=== PATIENT | male | born 1940 | race African-American/Black ===

== ENCOUNTER 2021-06-12 15:14 | Inpatient (IN) | payer MEDICARE, MEDICAID ==
[~2021-06-12] VITALS: Ht 177.8 cm; Wt 81.6 kg
[2021-06-12 16:47] LABS: BASOPHILS % 0.8 % (0.0-2.0); HEMATOCRIT. 33.1 % (42.0-52.0); HEMOGLOBIN. 10.8 g/dL (14.0-18.0); LYMPHOCYTES % 33.5 % (20.0-50.0); MEAN CORPUSCULAR HEMOGLOBIN 32.4 pg (28.0-32.0); MEAN CORPUSCULAR VOLUME 99.1 fL (80.0-94.0); MEAN PLATELET VOLUME 8.5 fl (7.4-10.4); MONOCYTES % 10.5 % (2.0-8.0); NEUTROPHILS % 54.2 % (40.0-76.0); PLATELET 358 x1000/uL (130-400); RED BLOOD CELL COUNT 3.34 mill/uL (4.7-6.1); RED CELL DISTRIBUTION WIDTH 13.5 % (11.6-14.6)
[2021-06-12 16:54] LABS: CHLORIDE 110 mEq/L (98-107)
[2021-06-12 16:58] LABS: PROTHROMBIN TIME 10.3 sec (9.6-11.0)
[2021-06-12 16:59] LABS: ETHANOL BLOOD < 10 mg/dL
[2021-06-12 17:04] LABS: CLARITY URINE CLEAR (CLEAR); COLOR URINE YELLOW (YELLOW); KETONES URINE NEGATIVE (NEGATIVE); LEUKOCYTE ESTERASE URINE NEGATIVE (NEGATIVE); NITRITE URINE NEGATIVE (NEGATIVE); OCCULT BLOOD URINE NEGATIVE (NEGATIVE); PROTEIN URINE TRACE (NEGATIVE); SPECIFIC GRAVITY URINE 1.018 (1.005-1.030)
[2021-06-12 17:25] LABS: *AMPHETAMINES SCREEN URINE NEGATIVE (NEGATIVE); *BARBITURATES SCREEN URINE NEGATIVE (NEGATIVE); *BENZODIAZEPINES SCREEN URINE NEGATIVE (NEGATIVE); *COCAINE SCREEN URINE NEGATIVE (NEGATIVE); CANNABINOID URINE SCREEN NEGATIVE (NEGATIVE); METHADONE URINE SCREEN NEGATIVE (NEGATIVE); OPIATES URINE SCREEN NEGATIVE (NEGATIVE); PHENCYCLIDINE URINE SCREEN NEGATIVE (NEGATIVE)
[2021-06-12] MEDS ORDERED: SODIUM CHLORIDE 0.9% 1,000 ML IV ONE (19:15)
[2021-06-12] MEDS ORDERED: LABETALOL 5MG/ML SYR 20 MG/4 ML SYRINGE IV ONE (19:30)
[2021-06-12] MEDS ORDERED: ONDANSETRON HCL 4MG/2ML INJ IV PRN (20:45)
[2021-06-12] MEDS ORDERED: ACETAMINOPHEN 325MG TABLET PO PRN (20:45)
[2021-06-12] MEDS ORDERED: DOCUSATE SODIUM 100MG CAPSULE PO PRN (20:45)
[2021-06-12] MEDS ORDERED: MAGNESIUM/ALUMINUM HYDROXIDE/SIMETHICONE 30ML UDC PO PRN (20:45)
[2021-06-12] MEDS ORDERED: IPRATROPIUM/ALBUTEROL 0.5-3(2.5)MG/3ML NEB NEB PRN (20:45)
[2021-06-12] MEDS ORDERED: CLONIDINE 0.1MG TABLET PO PRN (20:45)
[2021-06-12] MEDS: SODIUM CHLORIDE 0.9% 1,000 ML IV SCH (21:06)
[2021-06-12] MEDS: ENOXAPARIN 40MG/0.4ML SYR SUBCUT SCH (23:05)
[2021-06-12 23:25] LABS: CHLORIDE 112 mEq/L (98-107)
[2021-06-12 23:33] LABS: CREATINE KINASE 80 IU/L (39-308)
[2021-06-13] VITALS (7 sets, daily range): BP systolic 120–163; BP diastolic 72–89
[2021-06-13] MEDS: SODIUM CHLORIDE 0.9% 1,000 ML IV SCH ×2 (10:05→12:48)
[2021-06-13 16:47] LABS: BASOPHILS % 1.2 % (0.0-2.0); EOSINOPHILS % 0.6 % (0.0-5.0); HEMATOCRIT. 28.6 % (42.0-52.0); HEMOGLOBIN. 9.9 g/dL (14.0-18.0); LYMPHOCYTES % 19.7 % (20.0-50.0); MEAN CORPUSCULAR VOLUME 95.8 fL (80.0-94.0); MEAN PLATELET VOLUME 7.9 fl (7.4-10.4); MONOCYTES % 9.3 % (2.0-8.0); NEUTROPHILS % 69.2 % (40.0-76.0); PLATELET 316 x1000/uL (130-400); RED BLOOD CELL COUNT 2.98 mill/uL (4.7-6.1); RED CELL DISTRIBUTION WIDTH 13.2 % (11.6-14.6)
[2021-06-13 17:05] LABS: CREATINE KINASE 99 IU/L (39-308); LDL CHOLESTEROL 54 mg/dL (5-100)
[2021-06-13 17:07] LABS: HDL CHOLESTEROL 53 mg/dL (40-59)
[2021-06-13 17:08] LABS: CREATINE KINASE MB FRACTION 1.3 ng/mL (0.5-3.6)
[2021-06-13 17:20] LABS: FOLIC ACID (FOLATE) SERUM 16.2 ng/mL (>5.38)
[2021-06-13] MEDS: ENOXAPARIN 40MG/0.4ML SYR SUBCUT SCH (21:02)
[2021-06-14] VITALS: BP 151/88
[2021-06-14 04:00] VITALS: BP 157/89
[2021-06-14 06:35] LABS: BASOPHILS % 0.7 % (0.0-2.0); HEMATOCRIT. 29.2 % (42.0-52.0); HEMOGLOBIN. 9.7 g/dL (14.0-18.0); MEAN CORPUSCULAR HEMOGLOBIN 32.6 pg (28.0-32.0); MEAN CORPUSCULAR VOLUME 97.9 fL (80.0-94.0); MEAN PLATELET VOLUME 8.1 fl (7.4-10.4); MONOCYTES % 12.5 % (2.0-8.0); NEUTROPHILS % 63.8 % (40.0-76.0); PLATELET 299 x1000/uL (130-400); RED BLOOD CELL COUNT 2.98 mill/uL (4.7-6.1); RED CELL DISTRIBUTION WIDTH 13.3 % (11.6-14.6)
[2021-06-14 06:48] LABS: PHOSPHORUS 2.6 mg/dL (2.5-4.9)
[2021-06-14 08:00] VITALS: BP 134/81
[2021-06-14] MEDS ORDERED: LIDOCAINE HCL 1% 20ML VIAL (Pyxis) INJ ONE (10:09)
[2021-06-14 12:00] VITALS: BP 147/85
[2021-06-14] MEDS: SODIUM CHLORIDE 0.9% 1,000 ML IV SCH (12:45)
[2021-06-14 16:00] VITALS: BP 160/87
[2021-06-14] MEDS: CEFTRIAXONE 1,000 MG in DEXTROSE 5% WATER 50 ML IV SCH (17:15)
[2021-06-14 20:00] VITALS: BP 140/86
[2021-06-14] MEDS: ENOXAPARIN 40MG/0.4ML SYR SUBCUT SCH (21:42)
[2021-06-15] VITALS: BP 129/68
[2021-06-15] MEDS: SODIUM CHLORIDE 0.9% 1,000 ML IV SCH ×2 (02:05→15:25)
[2021-06-15 04:00] VITALS: BP 151/85
[2021-06-15 08:00] VITALS: BP 144/90
[2021-06-15 08:53] LABS: BASOPHILS % 0.6 % (0.0-2.0); EOSINOPHILS % 0.6 % (0.0-5.0); HEMATOCRIT. 28.6 % (42.0-52.0); HEMOGLOBIN. 9.6 g/dL (14.0-18.0); LYMPHOCYTES % 13.8 % (20.0-50.0); MEAN CORPUSCULAR HEMOGLOBIN 32.3 pg (28.0-32.0); MEAN CORPUSCULAR VOLUME 95.7 fL (80.0-94.0); MEAN PLATELET VOLUME 7.8 fl (7.4-10.4); MONOCYTES % 9.5 % (2.0-8.0); NEUTROPHILS % 75.5 % (40.0-76.0); PLATELET 285 x1000/uL (130-400); RED BLOOD CELL COUNT 2.99 mill/uL (4.7-6.1); RED CELL DISTRIBUTION WIDTH 13.5 % (11.6-14.6)
[2021-06-15 09:04] LABS: PHOSPHORUS 2.6 mg/dL (2.5-4.9)
[2021-06-15 12:00] VITALS: BP 145/97
[2021-06-15 16:00] VITALS: BP 138/80
[2021-06-15] MEDS: CEFTRIAXONE 1,000 MG in DEXTROSE 5% WATER 50 ML IV SCH (16:29)
[2021-06-15 19:34] LABS: HEMATOCRIT 25.5 % (42.0-52.0); HEMOGLOBIN 8.7 g/dL (14.0-18.0)
[2021-06-15 20:00] VITALS: BP 112/82
[2021-06-15] MEDS: ENOXAPARIN 40MG/0.4ML SYR SUBCUT SCH (22:18)
[2021-06-16] VITALS: BP 145/77
[2021-06-16] MEDS: CEFEPIME 1,000 MG in DEXTROSE 5% WATER 50 ML IV SCH ×2 (00:44→09:18)
[2021-06-16 04:00] VITALS: BP 145/89
[2021-06-16] MEDS: SODIUM CHLORIDE 0.9% 1,000 ML IV SCH (05:18)
[2021-06-16 06:06] LABS: BASOPHILS % 0.6 % (0.0-2.0); EOSINOPHILS % 1.9 % (0.0-5.0); HEMATOCRIT. 26.1 % (42.0-52.0); HEMOGLOBIN. 8.7 g/dL (14.0-18.0); LYMPHOCYTES % 19.2 % (20.0-50.0); MEAN CORPUSCULAR HEMOGLOBIN 32.4 pg (28.0-32.0); MEAN CORPUSCULAR VOLUME 97.3 fL (80.0-94.0); MEAN PLATELET VOLUME 8.1 fl (7.4-10.4); MONOCYTES % 12.2 % (2.0-8.0); NEUTROPHILS % 66.1 % (40.0-76.0); PLATELET 237 x1000/uL (130-400); RED BLOOD CELL COUNT 2.68 mill/uL (4.7-6.1); RED CELL DISTRIBUTION WIDTH 13.2 % (11.6-14.6)
[2021-06-16 07:02] LABS: PHOSPHORUS 2.8 mg/dL (2.5-4.9)
[2021-06-16 08:00] VITALS: BP 147/82
[2021-06-16 10:03] LABS: CLARITY URINE CLEAR (CLEAR); COLOR URINE YELLOW (YELLOW); KETONES URINE NEGATIVE (NEGATIVE); LEUKOCYTE ESTERASE URINE 2+ (NEGATIVE); NITRITE URINE NEGATIVE (NEGATIVE); OCCULT BLOOD URINE 2+ (NEGATIVE); PROTEIN URINE 1+ (NEGATIVE); SPECIFIC GRAVITY URINE 1.019 (1.005-1.030); UROBILINOGEN URINE 0.2 E.U./dL (0.2-1.0)
[2021-06-16 12:00] VITALS: BP 158/90
[2021-06-16] MEDS ORDERED: LEVO750T46 MT (12:03)
[2021-06-16 16:00] VITALS: BP 156/85
[2021-06-16 16:48] VITALS: BP 156/85
== END 2021-06-16 17:40 | disposition home or self-care (01) | DRG 683 ==
LOC: ER 15:35 → 6EST 20:42 → ENRESERV 23:52
PROVIDERS: ADMIT Internal Medicine; ATTEND Internal Medicine
PROC: 02HV33Z Insertion of Infusion Device into Superior Vena Cava, Percutaneous Approach (ICD-10-PCS; principal; 2021-06-14)
PROC: B518ZZA Fluoroscopy of Superior Vena Cava, Guidance (ICD-10-PCS; 2021-06-14)
DX: N17.9 Acute kidney failure, unspecified (principal); N39.0 Urinary tract infection, site not specified; R62.7 Adult failure to thrive; D53.9 Nutritional anemia, unspecified; F03.90 Unspecified dementia, unspecified severity, without behavioral disturbance, psychotic disturbance, mood disturbance, and anxiety; N18.9 Chronic kidney disease, unspecified; N28.1 Cyst of kidney, acquired; B96.5 Pseudomonas (aeruginosa) (mallei) (pseudomallei) as the cause of diseases classified elsewhere; I12.9 Hypertensive chronic kidney disease with stage 1 through stage 4 chronic kidney disease, or unspecified chronic kidney disease; Z82.49 Family history of ischemic heart disease and other diseases of the circulatory system; Z68.25 Body mass index [BMI] 25.0-25.9, adult
CPT/HCPCS: 36415; 71045; 76770; 76937; 80048; 80053; 80061; 80305; 80320; 81003; 82550; 82553; 82607; 82746; 82962; 83735; 83880; 84100; 84443; 84484; 85014; 85018; 85025; 87077; 87186; 93005; 93970; 99285; C1725; C1893; J0692; J0696; J1650; J3490; J7040; J7060; G0480

== ENCOUNTER 2021-06-21 09:32 | Emergency (ER) | payer MEDICARE, MEDICAID ==
[~2021-06-21] VITALS: Ht 177.8 cm; Wt 82.0 kg
[~2021-06-21 09:32] MED LIST: LEVO750T46 MT
[2021-06-21 10:25] LABS: BASOPHILS % 0.9 % (0.0-2.0); EOSINOPHILS % 0.6 % (0.0-5.0); HEMATOCRIT. 29.2 % (42.0-52.0); HEMOGLOBIN. 9.9 g/dL (14.0-18.0); LYMPHOCYTES % 23.1 % (20.0-50.0); MEAN CORPUSCULAR HEMOGLOBIN 32.9 pg (28.0-32.0); MEAN CORPUSCULAR VOLUME 97.2 fL (80.0-94.0); MEAN PLATELET VOLUME 7.3 fl (7.4-10.4); MONOCYTES % 8.9 % (2.0-8.0); NEUTROPHILS % 66.5 % (40.0-76.0); PLATELET 272 x1000/uL (130-400); RED BLOOD CELL COUNT 3.01 mill/uL (4.7-6.1); RED CELL DISTRIBUTION WIDTH 14.1 % (11.6-14.6)
[2021-06-21 10:31] LABS: CHLORIDE 110 mEq/L (98-107)
[2021-06-21 10:35] LABS: ETHANOL BLOOD < 10 mg/dL
[2021-06-21 16:10] VITALS: BP 118/58
== END 2021-06-21 16:48 | disposition short-term general hospital (02) ==
LOC: ER 09:49
DX: R55 Syncope and collapse (principal); D64.9 Anemia, unspecified; N28.9 Disorder of kidney and ureter, unspecified; F03.90 Unspecified dementia, unspecified severity, without behavioral disturbance, psychotic disturbance, mood disturbance, and anxiety; I10 Essential (primary) hypertension; Z79.899 Other long term (current) drug therapy; Z20.822 Contact with and (suspected) exposure to COVID-19
CPT/HCPCS: 36415; 71045; 80053; 80320; 83880; 84484; 85025; 87426; 93005; 99285; G0480

== ENCOUNTER 2021-08-16 16:14 | Inpatient (IN) | payer MEDICARE, MEDICAID ==
[~2021-08-16] VITALS: Ht 175.3 cm; Wt 72.0 kg
[2021-08-16] MEDS ORDERED: SODIUM CHLORIDE 0.9% 1,000 ML IV ONE (16:45)
[2021-08-16 17:58] LABS: BASOPHILS % 0.5 % (0.0-2.0); EOSINOPHILS % 0.4 % (0.0-5.0); HEMATOCRIT. 32.2 % (42.0-52.0); HEMOGLOBIN. 10.8 g/dL (14.0-18.0); MEAN CORPUSCULAR HEMOGLOBIN 32.7 pg (28.0-32.0); MEAN CORPUSCULAR VOLUME 97.5 fL (80.0-94.0); MONOCYTES % 7.9 % (2.0-8.0); NEUTROPHILS % 78.2 % (40.0-76.0); PLATELET 285 x1000/uL (130-400); RED BLOOD CELL COUNT 3.31 mill/uL (4.7-6.1); RED CELL DISTRIBUTION WIDTH 13.6 % (11.6-14.6)
[2021-08-16 18:07] LABS: CHLORIDE 108 mEq/L (98-107)
[2021-08-16 20:50] LABS: CLARITY URINE CLEAR (CLEAR); COLOR URINE YELLOW (YELLOW); KETONES URINE NEGATIVE (NEGATIVE); LEUKOCYTE ESTERASE URINE NEGATIVE (NEGATIVE); NITRITE URINE NEGATIVE (NEGATIVE); OCCULT BLOOD URINE NEGATIVE (NEGATIVE); PH URINE 5.5 (4.5-8.0); PROTEIN URINE 1+ (NEGATIVE); SPECIFIC GRAVITY URINE 1.018 (1.005-1.030)
[2021-08-17 07:54] VITALS: BP 115/64
[2021-08-17] MEDS ORDERED: ONDANSETRON HCL 4MG/2ML INJ IV PRN (08:45)
[2021-08-17] MEDS ORDERED: ACETAMINOPHEN 325MG TABLET PO PRN (08:45)
== END 2021-08-17 02:28 | disposition short-term general hospital (02) | DRG 73 ==
LOC: ER 16:14 → MICUSO 23:55
PROVIDERS: ADMIT Internal Medicine; ATTEND Internal Medicine
DX: G90.8 Other disorders of autonomic nervous system (principal); G93.41 Metabolic encephalopathy; F03.90 Unspecified dementia, unspecified severity, without behavioral disturbance, psychotic disturbance, mood disturbance, and anxiety; I10 Essential (primary) hypertension; E11.9 Type 2 diabetes mellitus without complications; F17.200 Nicotine dependence, unspecified, uncomplicated
CPT/HCPCS: 36415; 71045; 80053; 81003; 82962; 84484; 85025; 93005; 99285; J7030; A4315

== ENCOUNTER 2021-11-02 18:10 | Emergency (ER) | payer MEDICARE, MEDICAID ==
[~2021-11-02] VITALS: Ht 177.8 cm; Wt 90.0 kg
[2021-11-02 20:55] LABS: BASOPHILS % 0.4 % (0.0-2.0); EOSINOPHILS % 0.4 % (0.0-5.0); HEMATOCRIT. 30.5 % (42.0-52.0); LYMPHOCYTES % 9.4 % (20.0-50.0); MEAN CORPUSCULAR HEMOGLOBIN 31.9 pg (28.0-32.0); MEAN CORPUSCULAR VOLUME 97.6 fL (80.0-94.0); MEAN PLATELET VOLUME 8.1 fl (7.4-10.4); MONOCYTES % 5.8 % (2.0-8.0); PLATELET 296 x1000/uL (130-400); RED BLOOD CELL COUNT 3.12 mill/uL (4.7-6.1); RED CELL DISTRIBUTION WIDTH 13.1 % (11.6-14.6)
[2021-11-02 21:01] LABS: CHLORIDE 108 mEq/L (98-107)
[2021-11-02 21:08] LABS: CLARITY URINE CLEAR (CLEAR); COLOR URINE YELLOW (YELLOW); KETONES URINE TRACE (NEGATIVE); LEUKOCYTE ESTERASE URINE NEGATIVE (NEGATIVE); NITRITE URINE NEGATIVE (NEGATIVE); OCCULT BLOOD URINE NEGATIVE (NEGATIVE); PROTEIN URINE 1+ (NEGATIVE)
[2021-11-02 21:15] LABS: PROTHROMBIN TIME 10.6 sec (9.6-11.0)
[2021-11-03 11:30] VITALS: BP 167/79
== END 2021-11-03 14:18 | disposition home or self-care (01) ==
LOC: ER 18:10
DX: R41.0 Disorientation, unspecified (principal); F03.90 Unspecified dementia, unspecified severity, without behavioral disturbance, psychotic disturbance, mood disturbance, and anxiety; E11.9 Type 2 diabetes mellitus without complications; I10 Essential (primary) hypertension
CPT/HCPCS: 36415; 71045; 80053; 81003; 83605; 84145; 84484; 85025; 87077; 93005; 99285

== ENCOUNTER 2022-01-14 02:47 | Inpatient (IN) | payer MEDICARE, MEDICAID ==
[~2022-01-14] VITALS: Ht 180.3 cm; Wt 77.2 kg
[2022-01-14 06:08] LABS: HEMATOCRIT. 30.8 % (42.0-52.0); HEMOGLOBIN. 10.4 g/dL (14.0-18.0); MEAN CORPUSCULAR HEMOGLOBIN 33.2 pg (28.0-32.0); MEAN CORPUSCULAR VOLUME 98.4 fL (80.0-94.0); MEAN PLATELET VOLUME 7.9 fl (7.4-10.4); PLATELET 231 x1000/uL (130-400); RED BLOOD CELL COUNT 3.13 mill/uL (4.7-6.1); RED CELL DISTRIBUTION WIDTH 13.6 % (11.6-14.6)
[2022-01-14 06:14] LABS: CHLORIDE 111 mEq/L (98-107)
[2022-01-14 06:18] LABS: ETHANOL BLOOD < 10 mg/dL
[2022-01-14 07:10] LABS: PLATELET ESTIMATE NORMAL
[2022-01-14 09:35] VITALS: BP 163/76
[2022-01-14 09:58] LABS: CLARITY URINE CLEAR (CLEAR); COLOR URINE YELLOW (YELLOW); KETONES URINE NEGATIVE (NEGATIVE); LEUKOCYTE ESTERASE URINE NEGATIVE (NEGATIVE); NITRITE URINE NEGATIVE (NEGATIVE); OCCULT BLOOD URINE 1+ (NEGATIVE); PROTEIN URINE 2+ (NEGATIVE); SPECIFIC GRAVITY URINE 1.008 (1.005-1.030); UROBILINOGEN URINE 0.2 E.U./dL (0.2-1.0)
[2022-01-14 10:00] VITALS: BP 168/84
[2022-01-14 10:29] LABS: *AMPHETAMINES SCREEN URINE NEGATIVE (NEGATIVE); *BARBITURATES SCREEN URINE NEGATIVE (NEGATIVE); *BENZODIAZEPINES SCREEN URINE NEGATIVE (NEGATIVE); *COCAINE SCREEN URINE NEGATIVE (NEGATIVE); METHADONE URINE SCREEN NEGATIVE (NEGATIVE)
[2022-01-14 10:30] LABS: CANNABINOID URINE SCREEN NEGATIVE (NEGATIVE); OPIATES URINE SCREEN NEGATIVE (NEGATIVE); PHENCYCLIDINE URINE SCREEN NEGATIVE (NEGATIVE)
[2022-01-14] MEDS ORDERED: GUAIFENESIN 200MG/10ML SUGAR FREE UDC PO PRN (11:30)
[2022-01-14] MEDS ORDERED: LORAZEPAM 0.5MG TABLET PO PRN (11:30)
[2022-01-14] MEDS ORDERED: CEFTRIAXONE 1 G PREMIX 50 ML IV SCH (11:30)
[2022-01-14] MEDS ORDERED: NA PHOS,M-B/NA PHOS,DI-BA ENEMA 118ML PR PRN (11:30)
[2022-01-14] MEDS ORDERED: ACETAMINOPHEN 650MG/20.3ML UDC GT PRN (11:30)
[2022-01-14] MEDS ORDERED: DOCUSATE SODIUM 100MG CAPSULE PO PRN (11:30)
[2022-01-14] MEDS ORDERED: ACETAMINOPHEN 650MG SUPP PR PRN (11:30)
[2022-01-14] MEDS ORDERED: IPRATROPIUM/ALBUTEROL 0.5-3(2.5)MG/3ML NEB NEB PRN (11:30)
[2022-01-14] MEDS ORDERED: HYDROCODONE/ACETAMINOPHEN 5/325MG TABLET PO PRN (11:30)
[2022-01-14] MEDS ORDERED: ONDANSETRON HCL 4MG/2ML INJ IV PRN (11:30)
[2022-01-14] MEDS ORDERED: DIPHENHYDRAMINE 50MG/ML VIAL IV PRN (11:30)
[2022-01-14] MEDS ORDERED: MAGNESIUM/ALUMINUM HYDROXIDE/SIMETHICONE 30ML UDC PO PRN (11:30)
[2022-01-14 12:00] VITALS: BP 98/62
[2022-01-14 16:00] VITALS: BP 159/91
[2022-01-14] MEDS ORDERED: DEXTROSE 50% WATER 50ML SYRINGE IV PRN (16:45)
[2022-01-14] MEDS ORDERED: NALOXONE HCL 0.4MG/ML VIAL IV PRN (16:45)
[2022-01-14] MEDS: BLOOD SUGAR DIAGNOSTIC STRIP TEST SCH ×2 (17:20→21:00)
[2022-01-14] MEDS: INSULIN LISPRO 100 UNITS/ML SUBCUT SCH ×3 (17:50→22:35)
[2022-01-14] MEDS: SODIUM CHLORIDE 0.45% 1,000 ML IV SCH (18:21)
[2022-01-14 18:22] LABS: CREATINE KINASE MB FRACTION 2.9 ng/mL (0.5-3.6)
[2022-01-14 20:00] VITALS: BP 139/80
[2022-01-14] MEDS: AMLODIPINE 5MG TABLET PO SCH (20:21)
[2022-01-14] MEDS: CEFTRIAXONE 1,000 MG in DEXTROSE 5% WATER 50 ML IV SCH (20:21)
[2022-01-14] MEDS: FAMOTIDINE 20MG TABLET PO SCH ×2 (22:34→23:42)
[2022-01-15] VITALS: BP 134/79
[2022-01-15 01:04] LABS: CREATINE KINASE MB FRACTION 2.7 ng/mL (0.5-3.6)
[2022-01-15 04:00] VITALS: BP 142/83
[2022-01-15 07:09] LABS: CHLORIDE 112 mEq/L (98-107)
[2022-01-15 07:10] LABS: EOSINOPHILS % 3.5 % (0.0-5.0); HEMATOCRIT. 31.6 % (42.0-52.0); HEMOGLOBIN. 10.7 g/dL (14.0-18.0); LYMPHOCYTES % 23.1 % (20.0-50.0); MEAN CORPUSCULAR HEMOGLOBIN 32.7 pg (28.0-32.0); MEAN CORPUSCULAR VOLUME 96.4 fL (80.0-94.0); MEAN PLATELET VOLUME 9.7 fl (7.4-10.4); MONOCYTES % 10.3 % (2.0-8.0); NEUTROPHILS % 62.1 % (40.0-76.0); PLATELET 107 x1000/uL (130-400); RED BLOOD CELL COUNT 3.28 mill/uL (4.7-6.1); RED CELL DISTRIBUTION WIDTH 13.3 % (11.6-14.6)
[2022-01-15] MEDS: INSULIN LISPRO 100 UNITS/ML SUBCUT SCH ×4 (07:19→22:39)
[2022-01-15] MEDS: BLOOD SUGAR DIAGNOSTIC STRIP TEST SCH ×4 (07:19→21:00)
[2022-01-15] MEDS: AMLODIPINE 5MG TABLET PO SCH (09:06)
[2022-01-15] MEDS: SODIUM CHLORIDE 0.45% 1,000 ML IV SCH (09:07)
[2022-01-15] MEDS: ASPIRIN 81MG TABLET PO SCH (13:13)
[2022-01-15] MEDS: CEFTRIAXONE 1,000 MG in DEXTROSE 5% WATER 50 ML IV SCH (13:14)
[2022-01-15 20:00] VITALS: BP 137/68
[2022-01-15] MEDS: ATORVASTATIN CALCIUM 20MG TABLET PO SCH (20:07)
[2022-01-16] VITALS: BP 139/86
[2022-01-16 04:00] VITALS: BP 153/79
[2022-01-16] MEDS: BLOOD SUGAR DIAGNOSTIC STRIP TEST SCH ×4 (07:20→21:47)
[2022-01-16] MEDS: INSULIN LISPRO 100 UNITS/ML SUBCUT SCH ×4 (07:50→21:00)
[2022-01-16 08:00] VITALS: BP 164/98
[2022-01-16] MEDS: AMLODIPINE 5MG TABLET PO SCH (09:21)
[2022-01-16] MEDS: ASPIRIN 81MG TABLET PO SCH (09:21)
[2022-01-16 10:11] LABS: VITAMIN B12 SERUM 298 pg/mL (211-911)
[2022-01-16 12:00] VITALS: BP 124/74
[2022-01-16] MEDS: CEFTRIAXONE 1,000 MG in DEXTROSE 5% WATER 50 ML IV SCH (12:56)
[2022-01-16 16:00] VITALS: BP 133/68
[2022-01-16] MEDS: CYANOCOBALAMIN 1000MCG/ML VIAL IM SCH ×2 (18:00→18:10)
[2022-01-16] MEDS: SODIUM CHLORIDE 0.45% 1,000 ML IV SCH (18:09)
[2022-01-16 20:00] VITALS: BP 149/71
[2022-01-16] MEDS: ATORVASTATIN CALCIUM 20MG TABLET PO SCH (20:35)
[2022-01-16] MEDS: FAMOTIDINE 20MG TABLET PO SCH (20:36)
[2022-01-17] VITALS (7 sets, daily range): BP systolic 116–180; BP diastolic 64–85
[2022-01-17] MEDS: CLONIDINE 0.1MG TABLET PO PRN ×2 (01:32→10:54)
[2022-01-17] MEDS: BLOOD SUGAR DIAGNOSTIC STRIP TEST SCH ×4 (07:20→20:03)
[2022-01-17] MEDS: INSULIN LISPRO 100 UNITS/ML SUBCUT SCH ×4 (07:50→20:25)
[2022-01-17] MEDS: AMLODIPINE 5MG TABLET PO SCH (09:11)
[2022-01-17] MEDS: ASPIRIN 81MG TABLET PO SCH (09:11)
[2022-01-17] MEDS: CYANOCOBALAMIN 1000MCG/ML VIAL IM SCH (09:12)
[2022-01-17] MEDS: SODIUM CHLORIDE 0.45% 1,000 ML IV SCH (10:55)
[2022-01-17] MEDS: CEFTRIAXONE 1,000 MG in DEXTROSE 5% WATER 50 ML IV SCH (13:45)
[2022-01-17] MEDS: ATORVASTATIN CALCIUM 20MG TABLET PO SCH (20:19)
[2022-01-17] MEDS: FAMOTIDINE 20MG TABLET PO SCH (20:19)
[2022-01-18] VITALS: BP 162/85
[2022-01-18] MEDS: CLONIDINE 0.1MG TABLET PO PRN (00:16)
[2022-01-18 04:00] VITALS: BP 169/93
[2022-01-18] MEDS: SODIUM CHLORIDE 0.45% 1,000 ML IV SCH (04:05)
[2022-01-18] MEDS: BLOOD SUGAR DIAGNOSTIC STRIP TEST SCH ×2 (06:48→13:06)
[2022-01-18] MEDS: INSULIN LISPRO 100 UNITS/ML SUBCUT SCH ×2 (07:50→13:14)
[2022-01-18 08:00] VITALS: BP 168/84
[2022-01-18] MEDS: AMLODIPINE 5MG TABLET PO SCH (08:49)
[2022-01-18] MEDS: ASPIRIN 81MG TABLET PO SCH (08:50)
[2022-01-18] MEDS: CYANOCOBALAMIN 1000MCG/ML VIAL IM SCH (08:50)
[2022-01-18 12:00] VITALS: BP 150/72
[2022-01-18 13:41] LABS: HEMATOCRIT. 30.8 % (42.0-52.0); HEMOGLOBIN. 10.3 g/dL (14.0-18.0); MEAN CORPUSCULAR HEMOGLOBIN 32.5 pg (28.0-32.0); MEAN CORPUSCULAR VOLUME 96.8 fL (80.0-94.0); MEAN PLATELET VOLUME 8.4 fl (7.4-10.4); PLATELET 227 x1000/uL (130-400); RED BLOOD CELL COUNT 3.19 mill/uL (4.7-6.1); RED CELL DISTRIBUTION WIDTH 13.3 % (11.6-14.6)
[2022-01-18] MEDS ORDERED: AMLO10TA4 MT (14:29)
[2022-01-18] MEDS ORDERED: ATOR20TA MT (14:29)
[2022-01-18] MEDS ORDERED: ASPI-1497 MT (14:29)
[2022-01-18 14:35] VITALS: BP 150/72
[2022-01-18 19:46] LABS: PLATELET ESTIMATE NORMAL
== END 2022-01-18 15:42 | disposition home health service (06) | DRG 64 ==
LOC: ER 02:47 → 6EST 05:29 → ENRESERV 08:05
PROVIDERS: ADMIT Internal Medicine; ATTEND Internal Medicine
DX: I63.9 Cerebral infarction, unspecified (principal); N17.0 Acute kidney failure with tubular necrosis; G93.41 Metabolic encephalopathy; E86.0 Dehydration; D64.9 Anemia, unspecified; F03.90 Unspecified dementia, unspecified severity, without behavioral disturbance, psychotic disturbance, mood disturbance, and anxiety; S00.81XA Abrasion of other part of head, initial encounter; W01.0XXA Fall on same level from slipping, tripping and stumbling without subsequent striking against object, initial encounter; I45.10 Unspecified right bundle-branch block; I12.9 Hypertensive chronic kidney disease with stage 1 through stage 4 chronic kidney disease, or unspecified chronic kidney disease; E11.22 Type 2 diabetes mellitus with diabetic chronic kidney disease; N18.9 Chronic kidney disease, unspecified; G90.8 Other disorders of autonomic nervous system; Y93.89 Activity, other specified; Z86.73 Personal history of transient ischemic attack (TIA), and cerebral infarction without residual deficits; Z79.2 Long term (current) use of antibiotics; Z79.899 Other long term (current) drug therapy; Y92.89 Other specified places as the place of occurrence of the external cause; Y99.8 Other external cause status
CPT/HCPCS: 36415; 70486; 70551; 71045; 72170; 80048; 80053; 80061; 80305; 80320; 81003; 82553; 82607; 82962; 83036; 84443; 84484; 85025; 93005; 93306; 93880; 93970; 97161; 97166; 97535; 99285; C1893; J0696; J1815; J3420; J7040; J7060; G0480